=== PATIENT | female | born 1975 | race Caucasian/White ===

== ENCOUNTER 2016-10-03 17:27 | Emergency (ER) | payer MEDICAID ==
[2016-10-03 17:45] VITALS: BP 126/88; PULSE 111; RESP 18; TEMP 98; O2SAT 96
--- NOTE | 2016-10-03 18:30 | UCPHY ---
H & P Time Seen by Provider: 10/03/16 18:01 Patient Type: New HPI/ROS: Patient reports a 2 week history of coughing that is a dry hacky cough. She explains that the family vacationed in [place] and she contracted this illness about the time they returned to [place]. She has no other associated symptoms except for mild myalgias that persist. She notes no clear exacerbating or alleviating factors otherwise. ROS: No high fevers or chills. No significant fatigue. HEENT: No facial pain. Minimal nasal congestion. No ear pain. No throat pain. No dysphonia. No stridor. Pulmonary: No pleuritic pain. No hemoptysis. No respiratory distress. Cardiovascular: No lightheadedness. No leg swelling or calf pain. GI: No nausea vomiting. 7 point ROS is otherwise negative. Social History: Her and infant daughter have similar illness currently Smoking Status: Never smoked Physical Exam: Physical Exam Vital signs are normal. General: No acute distress HEENT: Nose: Clear discharge bilaterally. No sinus tenderness to percussion. Ears: External canals and tympanic membranes are clear with no erythema or abnormal findings bilaterally. Oropharynx: No erythema or exudates. No dysphonia. No drooling or stridor. Eyes: Pupils equal and react to light. Extraocular motions are intact. Lungs: Minimal expiratory wheeze with no rales, rhonchi or increased work of breathing Cardiac: Regular rate and rhythm with no murmur gallop or rub Skin: No rash or pallor. Neuro: Alert with no focal deficits noted. Initial differential diagnosis: Viral bronchitis versus atypical bacterial bronchitis, URI with cough, doubt pneumonia Constitutional: Initial Vital Signs Temperature (C) 36.6 C 10/03/16 17:42 Heart Rate 111 H 10/03/16 17:42 Respiratory Rate 18 10/03/16 17:42 Blood Pressure 126/88 H 10/03/16 17:42 O2 Sat (%) 96 10/03/16 17:42 O2 Delivery Mode Room Air Allergies/Adverse Reactions: No Known Allergies Allergy (Unverified 10/03/16 17:42) Home Medications: Medication Instructions Recorded Albuterol Hfa Anes Only [Proair 2 puffs IH Q4 PRN #1 mdi 10/03/16 Hfa Icu (*)] Azithromycin [Zithromax] 250 mg PO DAILY #6 tab 10/03/16 MDM/Departure - [facility] ED Course/Re-evaluation: Patient appears clinically well without evidence of sepsis or other concerning findings. I counseled her regarding bronchitis. - Depart Disposition: Home, Routine, Self-Care Clinical Impression: Acute bronchitis Qualifiers: Bronchitis organism: unspecified organism Qualified Code(s): J20.9 - Acute bronchitis, unspecified Condition: Good Instructions: Acute Bronchitis (ED) Additional Instructions: Diagnosis: Acute bronchitis Plan: Humidifier Albuterol inhaler with spacer for cough, wheeze or shortness of breath Zithromax antibiotic Return for any significant worsening despite the treatment plan Prescriptions: Albuterol Hfa Anes Only [Proair Hfa Icu (*)] 2 puffs IH Q4 PRN #1 mdi PRN Reason: Wheezing Azithromycin [Zithromax] 250 mg PO DAILY #6 tab Referrals: NONE *PRIMARY CARE P,. [Primary Care Provider] - As per Instructions - PQRS PQRS Measurement: NA
== END 2016-10-03 18:50 | disposition home or self-care (01) ==
LOC: CED 17:27
DX: J20.9 Acute bronchitis, unspecified (principal)
CPT/HCPCS: 99203-PO; G0463-PO